=== PATIENT | female | born 1985 | race Caucasian/White ===

== ENCOUNTER → 2016-11-29 | Emergency (ER) | payer BC ==
[~2016-11-29] VITALS: Ht 170.2 cm; Wt 89.2 kg
[~2016-11-29] MED LIST: ABILIFY10 MG PO; AMBIEN10 M1 PO; ATARAX,VISTARIL50 MG PO; BENADRYL25 MG PO; CHERATUSSIN AC473 ML PO; EFFEXOR50 MG PO; FETZIMA20 MG PO; GEODON20 MG PO; KLONOPIN1 MG PO; LITHIUM CARBON300 M2 PO; LUNESTA3 MG PO; MACROBID100 MG PO; Motrin PO; NITROFURANTOIN100 M3 PO; Percocet 5/325,Endoc PO; TOPAMAX100 MG PO; TOPIRAMATE100 MG PO; VISTARIL25 MG PO; VISTARIL50 MG PO; ZIPRASIDONE HCL60 MG PO; ZIPRASIDONE HCL80 MG PO; ZOLOFT50 M1 PO
[2016-11-29 03:31] VITALS: BP 145/99
[2016-11-29 04:49] LABS: ADD MIUA? YES; BILIRUBIN NEGATIVE; BLOOD LARGE; COLOR YELLOW ((YELLOW)); GLUCOSE (STRIP) NEGATIVE; KETONES NEGATIVE; LEUKOCYTES LARGE; NITRITE NEGATIVE; PROTEIN (STRIP) 100; SPECIFIC GRAVITY 1.016 (1.000-1.030); UROBILINOGEN 0.2 MG/DL (0.2-1.0)
[2016-11-29 04:58] LABS: THC CANNABINOIDS PRESUMPTIVE POSITIVE (50 ng/mL)
[2016-11-29 04:59] LABS: ADD MEDTOX COMMENT Y; AMPHETAMINE NEGATIVE (500 ng/mL); BARBITURATES NEGATIVE (200 ng/mL); BENZODIAZEPINES NEGATIVE (150 ng/mL); COCAINE NEGATIVE (150 ng/mL); INTERNAL CONTROLS VALID? YES; METHADONE NEGATIVE (200 ng/mL); METHAMPHETAMINE NEGATIVE (500 ng/mL); OPIATES (MORPHINE) NEGATIVE (100 ng/mL); OXYCODONE NEGATIVE (100 ng/mL); PHENCYCLIDINE NEGATIVE (25 ng/mL); PROPOXYPHENE NEGATIVE (300 ng/mL); TRICYCLIC ANTIDEPRESSANTS PRESUMPTIVE POSITIVE (300 ng/mL)
[2016-11-29 05:36] LABS: BACTERIA 3+ /HPF; CASTS NONE SEEN /LPF; CRYSTALS NONE SEEN; EPITHELIAL CELLS 3+ /HPF; UCUL ADDED? YES; WHITE BLOOD CELLS 20-30 /HPF (0-5)
[2016-11-29 05:37] LABS: MUCUS 1+ /LPF
== END | disposition home or self-care (01) ==
LOC: EME 03:23
PROVIDERS: Emergency Medicine
DX: N30.91 Cystitis, unspecified with hematuria (principal); Z77.028 Contact with and (suspected) exposure to other hazardous aromatic compounds
CPT/HCPCS: 81003; 84999; 87086; 99281; 99284